=== PATIENT | male | born 1955 | race Caucasian/White ===

== ENCOUNTER 2018-05-10 05:49 | Day surgery (SDC) | payer OTHER ==
[~2018-05-10 05:49] MED LIST: FORTAMET1000 MG PO; JANUVIA100 MG PO
== END 2018-05-10 13:20 | disposition home or self-care (01) ==
LOC: CIR.AMB 05:49
DX: C67.4 Malignant neoplasm of posterior wall of bladder (principal)

== ENCOUNTER 2022-05-26 12:18 | Day surgery (SDC) | payer OTHER ==
[~2022-05-26] VITALS: Ht 172.7 cm; Wt 83.9 kg
[2022-05-26] MEDS ORDERED: MELOXICAM15 MG PO (18:53)
[2022-05-26] MEDS ORDERED: PYRIDIUM200 MG PO (18:53)
[2022-05-26] MEDS ORDERED: GABAPENTIN400 MG PO (18:53)
[2022-05-26] MEDS ORDERED: DETROL LA2 MG PO (18:54)
== END 2022-05-26 21:50 | disposition home or self-care (01) ==
LOC: CIR.AMB 12:18
PROVIDERS: ATTEND Surgery
DX: C67.9 Malignant neoplasm of bladder, unspecified (principal); Z88.8 Allergy status to other drugs, medicaments and biological substances; E11.9 Type 2 diabetes mellitus without complications; Z79.84 Long term (current) use of oral hypoglycemic drugs

== ENCOUNTER 2023-02-05 10:30 | Day surgery (SDC) | payer OTHER ==
[~2023-02-05] VITALS: Ht 172.7 cm; Wt 83.5 kg
[~2023-02-05 10:30] MED LIST changes: +DETROL LA2 MG PO; +GABAPENTIN400 MG PO; +MELOXICAM15 MG PO; +PYRIDIUM200 MG PO
== END 2023-02-05 23:50 | disposition home or self-care (01) ==
LOC: CIR.AMB 10:30
PROVIDERS: ATTEND Urology
DX: C67.9 Malignant neoplasm of bladder, unspecified (principal); N34.2 Other urethritis; D41.4 Neoplasm of uncertain behavior of bladder; Z20.822 Contact with and (suspected) exposure to COVID-19